=== PATIENT | male | born 1955 | race Caucasian/White ===

== ENCOUNTER → 2024-04-27 | Outpatient (CLI) | payer SELFPAY, OTHER ==
--- NOTE | 2024-04-27 08:01 | MRI_ITS ---
STUDY: MR PROSTATE GLAND/ PELVIS WITH T WITHOUT CONTRAST REASON FOR EXAM: Male, 68 years old. ELEVATED PSA no pain, elevated psa,,hx left renal ca 6 years ago TECHNIQUE: Standardized fat and water weighted pulse sequences were obtained in all 3 orthogonal planes, pre-and post contrast administration. IV 17ml clariscan was administered for the contrast portion of the examination. COMPARISON: None. FINDINGS: Prostate gland volume/size: 4.45 x 2.95 x 4.59 cm. Anterior fibromuscular stroma: Mildly thickened. Peripheral zone: Mildly heterogeneous bilaterally with scattered linear fibrotic strands as well as areas of intermediate abnormality in the parenchyma. A small simple cyst is present at the periphery of the right side of the peripheral zone. No definite mass or enhancing lesion with diffusion weighted signal abnormality is present in the prostate gland indicate a neoplasm. Central zone: Diffusely heterogeneous with small cysts and intermediate signal nodules intermixed with moderate fibrosis and scarring and diffuse postcontrast enhancement most likely due to sequela from prior prostatitis. No discrete enhancing or low signal encapsulated mass. Herniation of hyperplastic cystic and nodular components into the trigone of the bladder. Transitional zone: Diffusely heterogeneous with small cysts and intermediate signal nodules intermixed with moderate fibrosis and scarring and diffuse postcontrast enhancement most likely due to sequela from prior prostatitis. No discrete enhancing or low signal encapsulated mass. Prostate capsule: Intact Seminal vesicles: Normal bilaterally Pelvic sidewall lymphadenopathy: No pelvic lymphadenopathy is present. Bony structures: No marrow edema or fracture or abnormal enhancing lesions are present. Mild right and moderate left hamstring tendinosis with edema and swelling is present. Small left posterior lateral diverticulum of the bladder measuring 4 cm. Mild diffuse thickening of the bladder wall and subtle trabeculation. No bladder masses or intraluminal stones are present. Normal visualized small intestine. Normal visualized colon. There is no pelvic fluid. There is no pelvic mass lesion. Normal abdominal wall. MRI/Pelvis W/WO Contrast IMPRESSION: 1. Peripheral zone: Mildly heterogeneous bilaterally with scattered linear fibrotic strands as well as areas of intermediate abnormality in the parenchyma. A small simple cyst is present at the periphery of the right side of the peripheral zone. No definite mass or enhancing lesion with diffusion weighted signal abnormality is present in the prostate gland indicate a neoplasm. 2. Suggest BPH and sequela of chronic prostatitis. 3. PI-RADS 3: intermediate (the presence of clinically significant cancer is equivocal) 4. Targeted image guided biopsy of nodules or area of interest can be performed for definitive pathologic assessment of the tissue and diagnosis 5. Prostate PET/CT exam can also be performed to determine if there is viable malignant neoplasm in the prostate gland. Prostate MRI reference: 15-30% of prostate cancers can go undetected on Prostate MRI. Monitoring and assessment by Primary physician, Urology, and oncology service recommended and treated clnically. (Cancers ([place]). 2022May 06;15(20):5893. doi: [id number] Prostate Cancers Invisible on Multiparametric MRI: Pathologic Features in Correlation with Whole-Mount Prostatectomy Emilia Soler 1,2,*, Lenny Curiel 3, Dane Alanis 1,2, Mallika Su 1,2, Randy Awan 4, Kashmir Robertson 5, Brooks Sanchez 6, Jim Cobb 1,2, Yulissa Jacques 1,2) Reference information: Normal prostate tissue Benign prostatic hypertrophy cancer/tumor - low signal peripheral , transitional, and central zones malignancy appears as bright on DWI and low signal on ADC map Prostate imaging-reporting and data system (PI-RADS) PI-RADS 1: very low (clinically significant cancer is highly unlikely to be present) PI-RADS 2: low (clinically significant cancer is unlikely to be present) PI-RADS 3: intermediate (the presence of clinically significant cancer is equivocal) PI-RADS 4: high (clinically significant cancer is likely to be present) PI-RADS 5: very high (clinically significant cancer is highly likely to be present) PI-RADS X: component of exam technically inadequate or not performed Prostate malignancy distribution: Peripheral zone: 70-80% Transitional zone: 10-20% Central zone: 5% or less Electronically Signed: Neville Galvez MD at 15:06 EST ,
[2024-04-27 08:38] LABS: CREATININE FINGERSTICK 1.1 mg/dL (0.70-1.30); EGFR FINGERSTICK > 60.0000 mL/min (>60)
== END | disposition home or self-care (01) ==
PROVIDERS: PCP Family Medicine; Referring Provider Urology; Visit Provider Urology
DX: R97.20 Elevated prostate specific antigen [PSA] (principal)
CPT/HCPCS: 72197; A9575